=== PATIENT | male | born 1965 | race Caucasian/White ===

== ENCOUNTER 2021-10-25 02:01 | Emergency (ER) | payer OTHER ==
[~2021-10-25] VITALS: Ht 180.3 cm; Wt 81.7 kg
[~2021-10-25 02:01] MED LIST: SUBOXONE 8 MG-1 EAC2
[2021-10-25] MEDS ORDERED: NAPROSYN500 MG PO (05:33)
[2021-10-25] MEDS ORDERED: FLEXERIL PO (05:33)
[2021-10-25 05:55] VITALS: BP 174/128
--- NOTE | 2021-10-25 11:30 | EKG ---
[place] [address] [facility] [employer] [place] [address] ELECTROCARDIOGRAM REPORT Name: ANISA MOURA Room #: DEP KWAME Guidry#: [id number] Admission: 10/25/21 Attend Phys: Discharge: 10/25/21 Date of : 69 Report #: [id number] [facility] ED Test Date: 2021-10-25 Test Time: 02:13:00 Pat Name: ANISA MOURA Department: Room: Gender: Senior Php Software Developer: CONCHA : 1965 Requested By: Nino Tello Order Number: [id number] MD: Reno Dinh Measurements Intervals [place] Rate: 119 P: 46 WV: 152 QRS: 39 QRSD: 93 T: 42 QT: 327 QTc: 461 Interpretive Statements Sinus tachycardia Baseline wander in lead(s) V2 Compared to ECG 08/14/2010 06:34:35 No significant changes Electronically Signed On 10-25-2021 11:30:40 PHYSICIAN ASSISTANT PRIMARY [facility]ARE by Reno Dinh [email or web address] <ELECTRONICALLY SIGNED> By: Reno Dinh MD, [facility] 10/25/21 1130 0213 021 Reno Dinh MD, FACC /EPI
== END 2021-10-25 05:56 | disposition home or self-care (01) ==
LOC: ER 02:01
DX: S01.01XA Laceration without foreign body of scalp, initial encounter (principal); S20.214A Contusion of middle front wall of thorax, initial encounter; F15.10 Other stimulant abuse, uncomplicated; Z79.899 Other long term (current) drug therapy; X58.XXXA Exposure to other specified factors, initial encounter; Y93.89 Activity, other specified; Y92.89 Other specified places as the place of occurrence of the external cause; Y99.8 Other external cause status